=== PATIENT | male | born 1960 | race Caucasian/White ===

== ENCOUNTER → 2016-05-31 | Outpatient (CLI) | payer BC ==
[2016-05-31 08:19] LABS: ALT 26 U/L (21-72); AST 21 U/L (17-59); Cholesterol 175 mg/dL (<200); HDL Cholesterol 52 mg/dL (40-60); Triglycerides 79 mg/dL (<150)
== END | disposition home or self-care (01) ==
LOC: LABWHC1 07:34
PROVIDERS: ATTEND Nurse Practitioner Adult Health
DX: E78.2 Mixed hyperlipidemia (principal)
CPT/HCPCS: 36415; 80061; 84450; 84460

== ENCOUNTER → 2016-12-01 | Outpatient (CLI) | payer BC ==
[2016-12-01 17:13] LABS: Clam IgE <0.10 kU/L; Egg White IgE 0.45 kU/L; Peanut IgE <0.10 kU/L; Scallop IgE <0.10 kU/L; Soybean IgE <0.10 kU/L
[2016-12-01 17:19] LABS: Alternaria alternata IgE 0.29 kU/L; Aspergillus fumagatus IgE 0.51 kU/L; Cat Epith & Dander IgE <0.10 kU/L; Cladosporian herbarum IgE <0.10 kU/L; Dermato. farinae IgE 0.28 kU/L; Maple (Box Elder) IgE 0.16 kU/L; Orchard Grs(Cocksfoot) IgE <0.10 kU/L; Ragweed,Common IgE <0.10 kU/L
== END | disposition home or self-care (01) ==
LOC: LABWHC1 09:45
PROVIDERS: ATTEND Internal Medicine Critical Care Medicine
DX: J45.909 Unspecified asthma, uncomplicated (principal)
CPT/HCPCS: 36415; 82785; 86003

== ENCOUNTER 2017-10-01 11:53 | Emergency (ER) | payer BC ==
[2017-10-01 12:10] VITALS: BP 109/67; PULSE 72; RESP 18; TEMP 98.9
--- NOTE | 2017-10-01 12:23 | ED ---
Upper Extremity HPI - General Chief Complaint: Extremity Injury, Upper Stated Complaint: rt shoulder injury from fall Time Seen by Provider: 10/01/17 12:12 Source: patient Mode of arrival: ambulatory Limitations: no limitations - History of Present Illness Initial Comments: 56-year-old male presents with right shoulder pain that occurred last night. Patient states he was walking and tripped and fell and landed directly on his right shoulder. Patient states he is in a lot of pain. Patient doesn't remember any stenting popping or cracking sensation. No previous injury to this shoulder. Patient is right-hand dominant. Known sick tingling the patient is very limited range of motion with the right shoulder. No head or neck injury no loss of consciousness. Patient did not take any over-the- counter Motrin or Tylenol. No chest pain or rib discomfort. MD Complaint: Injury to:: right, shoulder Handedness: right Place: outdoors Improves With: none Worsens With: movement of extremity - Related Data Home Medications Medication Instructions Recorded Confirmed No Known Home Medications 10/01/17 10/01/17 Allergies Allergy/AdvReac Type Severity Reaction Status Date / Time No Known Allergies Allergy Verified 10/01/17 12:07 Review of Systems ROS Statement: Those systems with pertinent positive or pertinent negative responses have been documented in the HPI. ROS Other: All systems not noted in ROS Statement are negative. Musculoskeletal: Reports: other (right shoulder) Neurological: Denies: numbness, paresthesias Past Medical History Past Medical History: Asthma History of Any Multi-Drug Resistant Organisms: None Reported Past Surgical History: Orthopedic Surgery Additional Past Surgical History / Comment(s): hip replacement x 2 Past Psychological History: No Psychological Hx Reported Smoking Status: Never smoker Past Alcohol Use History: Occasional Past Drug Use History: None Reported General Exam Limitations: no limitations General appearance: alert, in no apparent distress Eye exam: Present: normal appearance, PERRL, EOMI. Absent: scleral icterus, conjunctival injection, periorbital swelling ENT exam: Present: normal exam, mucous membranes moist Neck exam: Present: normal inspection. Absent: tenderness, meningismus, lymphadenopathy Respiratory exam: Present: normal lung sounds bilaterally. Absent: respiratory distress, wheezes, rales, rhonchi, stridor Cardiovascular Exam: Present: regular rate, normal rhythm, normal heart sounds. Absent: systolic murmur, diastolic murmur, rubs, gallop, clicks Right Shoulder Exam: Present: normal inspection, tenderness (right ant), tenderness over AC joint (right). Absent: full ROM, swelling, ecchymosis, deformity Upper Arm exam: Present: normal inspection, full ROM. Absent: tenderness, swelling Elbow exam: Present: normal inspection, full ROM. Absent: tenderness, swelling Forearm Wrist exam: Present: normal inspection, full ROM. Absent: tenderness, swelling, abrasion Hand Wrist exam: Present: normal inspection, full ROM. Absent: tenderness, swelling Neuro motor exam: Present: wrist extension intact Neurosensory exam: Present: 2-point discrimination Vascular: Present: normal capillary refill. Absent: vascular compromise Neurological exam: Present: alert, oriented X3, CN II-XII intact Psychiatric exam: Present: normal affect, normal mood Skin exam: Present: warm, dry, intact, normal color. Absent: rash Course Vital Signs 10/01/17 12:07 Temperature 98.9 F Pulse Rate 72 Respiratory 18 Rate Blood Pressure 109/67 O2 Sat by Pulse 98 Oximetry Medical Decision Making - Medical Decision Making Patient tender to palpation on exam very limited range of motion at upon physical exam. Reviewed x-rays along with radiology results all negative for any acute changes. Only slight degenerative changes noted on the right shoulder x-ray. Patient aware given a sling applied by me. Patient have close follow-up with [facility] specialist may need MRI to rule out rotator cuff injury in the near future. Patient referred to [facility] specialist given xray copies. good lateral sensation upon exam Disposition Clinical Impression: Shoulder pain, acute, Contusion Disposition: HOME SELF-CARE Condition: Good Instructions: Shoulder Pain (ED) Is patient prescribed a controlled substance at d/c from ED?: No Referrals: [facility] [Primary Care Provider] - 1-2 days Lopez Lei MD [Medical Doctor] - 1-2 days Time of Disposition: 12:52
--- NOTE | 2017-10-01 12:41 | XR ---
EXAMINATION TYPE: XR AC joint BILAT , 2 VIEWS DATE OF EXAM ORDERED: 10/01/2017 HISTORY: Pain. COMPARISON: Right shoulder x-ray from earlier today. FINDINGS: The AC joints are normal. There is a normal coracoclavicular distance bilaterally. There i s no subluxation with weights. IMPRESSION: NORMAL AC JOINTS.
--- NOTE | 2017-10-01 12:41 | XR ---
EXAMINATION TYPE: XR shoulder complete RT , 3 VIEWS DATE OF EXAM ORDERED: 10/01/2017 HISTORY: Pain. COMPARISON: None. FINDINGS: No fracture, dislocation or other acute osseous lesion is seen. There are very mild degene rative changes in the right AC joint. IMPRESSION: 1. NO ACUTE OSSEOUS LESION. 2. MINIMAL DEGENERATIVE CHANGE.
== END 2017-10-01 13:03 | disposition home or self-care (01) ==
LOC: EC 11:53 → MERGE 11:53 → EC 13:03
DX: S40.011A Contusion of right shoulder, initial encounter (principal); Z96.649 Presence of unspecified artificial hip joint; Z98.890 Other specified postprocedural states; W01.198A Fall on same level from slipping, tripping and stumbling with subsequent striking against other object, initial encounter; Y92.89 Other specified places as the place of occurrence of the external cause; Y93.01 Activity, walking, marching and hiking
CPT/HCPCS: 73050; 99283

== ENCOUNTER → 2018-03-15 | Outpatient (CLI) | payer BC ==
--- NOTE | 2018-03-15 11:20 | BD ---
EXAMINATION TYPE: Axial Bone Density DATE OF EXAM: 03/15/2018 COMPARISON: NONE CLINICAL HISTORY: 57 YR OLD MALE.....ICD10 CODE: M89.9 DISORDER OF BONE Height: 63.3 Weight: 180 FRAX RISK QUESTIONS: Glucocorticoids (More than 3mos): YES (Ex: prednisone, prednisolone, methylprednisolone, dexamethasone, and hydrocortisone). RISK FACTORS HISTORY OF: HX OF SHOULDER FRACTURE YOUNG MAN Surgery to BOTH HIPS, THR's BILATERALLY Family History of Osteoporosis: YES HIS MOTHER Active: YES Lost more than 2 inches in height since high school: YES MEDICATIONS: Prednisone or other steroids: ASTHMA, ADVIAR, PREDNISONE ON AND OFF Additional Medications: VIT D AND MULTIVITAMIN, REFLUX MEDS, Additional History: BILAT HIP REPLACEMENTS, RT SHOULDER REPLACEMENT, LT ANKLE REPAIR, EXAM MEASUREMENTS: Bone mineral densitometry was performed using the [employer]. Bone mineral density as measured about the Lumbar spine is: ----- L1-L4(G/cm2): 1.184 T Score Values are as follows: ----- L1: -0.9 ----- L2: -0.6 ----- L3: -0.8 ----- L4: 2.2 ----- L1-L4: 0.0 Bone mineral density FIRST BONE DENSITY TEST.....BASELINE STUDY BILAT THR's Bone mineral density about the L Wrist (g/cm2): 0.754 T Score values are as follows: -----Dist. R+U: 1.4 -----Prox. R+U: -0.6 -----Radius total: 0.4 Bone mineral density BASELINE STUDY NO FRAX....NO HIP SCANS NOTE: T-SCORE=SD OF THE YOUNG ADULT MEAN. Impression: Bone density is in the overall normal range.
== END ==
LOC: RADBDWWP 07:01
PROVIDERS: ATTEND Family Medicine
DX: M89.9 Disorder of bone, unspecified (principal)
CPT/HCPCS: 77080

== ENCOUNTER → 2018-09-04 | Outpatient (CLI) | payer BC ==
--- NOTE | 2018-09-04 12:30 | XR ---
EXAMINATION TYPE: XR chest 2V DATE OF EXAM: 09/04/2018 COMPARISON: Prior chest x-ray 06/18/2013 HISTORY: Cough TECHNIQUE: Frontal and lateral views of the chest are obtained. FINDINGS: There is no focal air space opacity, pleural effusion, or pneumothorax seen. The cardiac silhouette size is within normal limits. There is eventration of the right hemidiaphragm. The osseou s structures are intact. IMPRESSION: No acute cardiopulmonary process.
--- NOTE | 2018-09-04 13:12 | XR ---
Right hand HISTORY: Pain 3 views of the right hand Bone mineralization and alignment are maintained. No fracture or dislocation. Mild spurring present a t the third metacarpophalangeal joint. There is some mild associated loss of joint space. Some hypert rophic change also noted at the distal interphalangeal joint, third distal interphalangeal joint. IMPRESSION: Osteoarthritis.
== END | disposition home or self-care (01) ==
LOC: RADXRYALE 10:40
PROVIDERS: ATTEND Physician Assistant Medical
DX: M19.041 Primary osteoarthritis, right hand (principal)
CPT/HCPCS: 71046

== ENCOUNTER → 2018-12-11 | Outpatient (CLI) | payer BC ==
--- NOTE | 2018-12-11 16:03 | XR ---
Right hip HISTORY: Right hip pain 2 views of the right hip Patient is status post right hip arthroplasty. There is anatomic alignment. Bone mineralization may b e slightly reduced. Degenerative disc changes noted at the lumbosacral junction. Heterotopic new bone formation present about the joint. IMPRESSION: No fracture or dislocation. Postop changes.
== END | disposition home or self-care (01) ==
LOC: RADXRYALE 15:17
PROVIDERS: ATTEND Family Medicine
DX: M25.551 Pain in right hip (principal); Z96.641 Presence of right artificial hip joint
CPT/HCPCS: 73502

== ENCOUNTER → 2019-02-13 | Outpatient (CLI) | payer BC ==
--- NOTE | 2019-02-14 07:51 | XR ---
Lumbosacral spine HISTORY: Back pain 5 views of lumbosacral spine There is mild anterolisthesis grade 1 L4-5. Loss of disc height present L4-5 and L5-S1. Lumbar verteb ral bodies show preserved height. Bone mineralization is mildly reduced. Sclerosis present in the pos terior elements of the lower lumbar spine consistent with facet arthropathy. Postop change noted to b e hip. No evident spondylolysis. IMPRESSION: Degenerative disc disease, facet arthropathy, spinal listhesis. Osteopenia. Postop change s.
== END | disposition home or self-care (01) ==
LOC: RADXRYALE 08:48
PROVIDERS: ATTEND Physician Assistant Medical
DX: M51.37 Other intervertebral disc degeneration, lumbosacral region (principal); M43.17 Spondylolisthesis, lumbosacral region; M46.97 Unspecified inflammatory spondylopathy, lumbosacral region; M85.80 Other specified disorders of bone density and structure, unspecified site; Z98.890 Other specified postprocedural states
CPT/HCPCS: 72110

== ENCOUNTER → 2019-09-11 | Outpatient (CLI) | payer BC ==
--- NOTE | 2019-09-11 13:25 | XR ---
EXAMINATION TYPE: XR shoulder complete LT DATE OF EXAM: 09/11/2019 COMPARISON: NONE HISTORY: Pain TECHNIQUE: Three views are submitted. FINDINGS: The osseous structures are intact. There is no acute fracture or dislocation. No acute fracture or d islocation. There is a calcification left lung likely relate to granuloma.. Arthropathy of the AC karolina int. IMPRESSION: 1. AC joint arthropathy correlate for chronic rotator cuff disease.
== END | disposition home or self-care (01) ==
LOC: RADXRMAIN 12:27
PROVIDERS: ATTEND Internal Medicine
DX: M12.812 Other specific arthropathies, not elsewhere classified, left shoulder (principal)

== ENCOUNTER → 2019-12-23 | Outpatient (CLI) | payer BC ==
--- NOTE | 2019-12-23 14:40 | FL ---
EXAMINATION TYPE: FL arthrogram shoulder LT fluoroscopic-guided arthrogram injection. DATE OF EXAM: 12/23/2019 HISTORY: Left shoulder pain PROCEDURES: 1. Left shoulder fluoroscopy. 2. Left shoulder arthrogram. TECHNIQUE: The procedure, risks, and alternatives, were discussed with the patient. Informed consent was obtaine d. The site/side of the procedure was marked. The accompanying paperwork was verified for consistency. A critical pause was performed with assisting personnel just prior to the procedure, and the patient' s identity was confirmed using 2 identifiers. The left shoulder was prepped and draped in the usual sterile fashion. Imaging guidance was utilized to select the precise skin entry point. Local 1% lidocaine anesthesia was instilled. Under fluoroscop ic guidance, a 21 gauge spinal needle was introduced into the left glenohumeral joint. Appropriate ne edle tip position was confirmed after a small amount of contrast injection. Approximately 9 ml of a mixture of Isovue 200 iodinated contrast and Gadavist gadolinium was injected into the glenohumeral joint. The needle was then removed. The patient tolerated the procedure well. There was no immediate complication. After the procedure, the patient's condition was unchanged. No estimated blood loss. Total fluoroscopy time: 30 seconds Total images obtained: 8 IMPRESSION: Technically successful left shoulder arthrogram injection for MRI. No immediate complication.
--- NOTE | 2019-12-23 22:23 | MR ---
EXAMINATION TYPE: MR shoulder arthrogrm LT w co DATE OF EXAM: 12/23/2019 COMPARISON: Radiographs 09/11/2019. HISTORY: Left shoulder pain, chronic. TECHNIQUE: Multiplanar, multisequence images of the left shoulder is performed with followed .07 mL i ntra-articular Gadavist gadolinium contrast. Fluoroscopic study is dictated on a separate report. Th ere is adequate distention of the left glenohumeral joint. FINDINGS: Rotator Cuff: Full-thickness tear of the subscapularis tendon cranial fibers extending to the suprasp inatus tendon anterior fibers as evidenced by intra-articular contrast communicating with the subacro mial-subdeltoid bursa. The tear measures approximately 1 cm AP and difficult to measure on the serrano l sequence. There is background of moderate tendinosis of the supraspinatus tendon and subscapularis tendons. The infraspinatus and teres minor tendons are grossly intact. Acromioclavicular Joint: Moderate osteoarthritis. Glenohumeral Joint: Moderate osteoarthritis with overlying moderate sized partial thickness chondral defect. Labrum: Heterogeneous appearance with blunting anterior of the superior labrum extending anterior to posterior. Biceps Tendon: Diminutive size and incomplete visualization of the long head biceps tendon, in keepin g with chronic injury. Bone marrow signal: No focal abnormal marrow signal is appreciated. Other: No additional significant abnormality is appreciated. IMPRESSION: Small to moderate-sized full-thickness tear of the subscapularis tendon cranial fibers extending to t he supraspinatus tendon anterior fibers. No significant tendon retraction. Associated moderate atroph y of the subscapularis muscle. Chronic injury of the long head biceps tendon with diminutive size. SLAP type labral tear. Moderate osteoarthritis.
== END | disposition home or self-care (01) ==
LOC: RADFLMAIN 12:51
PROVIDERS: ATTEND Nurse Practitioner Adult Health
DX: M75.122 Complete rotator cuff tear or rupture of left shoulder, not specified as traumatic (principal); S09.90XA Unspecified injury of head, initial encounter; M19.012 Primary osteoarthritis, left shoulder; M25.512 Pain in left shoulder
CPT/HCPCS: 23350; 73040; 73222; A9585; Q9966

== ENCOUNTER 2020-12-07 14:55 | Emergency (ER) | payer BC ==
[2020-12-07 15:04] VITALS: RESP 18; TEMP 98.2
[2020-12-07 15:41] LABS: Basophils # (A) 0.1 k/uL (0-0.2); Basophils % (A) 1 %; Eosinophils # (A) 0.7 k/uL (0-0.7); Eosinophils % (A) 7 %; HCT 47.9 % (39.0-53.0); HGB 15.9 gm/dL (13.0-17.5); Lymphocytes # (A) 1.5 k/uL (1.0-4.8); Lymphocytes % (A) 16 %; MCHC 33.1 g/dL (31.0-37.0); Mean Platelet Volume 6.3; Monocytes # (A) 0.4 k/uL (0-1.0); Monocytes % (A) 4 %; Neutrophils # (A) 6.5 k/uL (1.3-7.7); Neutrophils % (A) 70 %; Platelet Count 381 k/uL (150-450); RBC 5.12 m/uL (4.30-5.90); RDW 12.8 % (11.5-15.5); WBC 9.3 k/uL (3.8-10.6)
[2020-12-07 15:49] LABS: ALT 24 U/L (4-49); AST 27 U/L (17-59); African American GFR (CKD) >90 (>60 ml/min/1.73 sqM); Albumin 3.6 g/dL (3.5-5.0); Alkaline Phosphatase 53 U/L (38-126); Anion Gap 8 mmol/L; Blood Urea Nitrogen 11 mg/dL (9-20); Carbon Dioxide 23 mmol/L (22-30); Chloride 107 mmol/L (98-107); Glucose 131 mg/dL (74-99); MCV 93.5 fL (80.0-100.0); Non-African American GFR(CKD) >90 (>60 ml/min/1.73 sqM); Sodium 138 mmol/L (137-145); Total Bilirubin 0.5 mg/dL (0.2-1.3); Total Protein 6.5 g/dL (6.3-8.2)
[2020-12-07 15:55] LABS: Prothrombin Time 10.3 sec (9.0-12.0)
[2020-12-07 15:56] LABS: Partial Thromboplastin Time 23.5 sec (22.0-30.0)
--- NOTE | 2020-12-07 17:08 | XR ---
EXAMINATION TYPE: XR chest 2V DATE OF EXAM: 12/07/2020 COMPARISON: Chest radiograph 09/04/2018 HISTORY: Chest pain TECHNIQUE: Frontal and lateral views of the chest are obtained. FINDINGS: There is no focal air space opacity, pleural effusion, or pneumothorax seen. The cardiac silhouette size is within normal limits. Prominence of the central pulmonary vasculature similar to p rior. The osseous structures are intact. IMPRESSION: No acute cardiopulmonary process.
[2020-12-07 17:56] VITALS: BP 136/99; PULSE 68
[2020-12-07] MEDS ORDERED: ALBUTEROL HFA INHALER INHALATION STA (18:39)
[2020-12-07] MEDS ORDERED: predniSONE 50 MG TAB PO STA (18:39)
[2020-12-07] MEDS ORDERED: DOXYCYCLINE 100 MG CAP PO STA (18:40)
--- NOTE | 2020-12-07 19:23 | CT ---
EXAMINATION TYPE: CT chest angio for PE DATE OF EXAM: 12/07/2020 COMPARISON: None HISTORY: elevated d-dimer, chest pain CT DLP: 444.3 mGycm Automated exposure control for dose reduction was used. CONTRAST: CT Chest for pulmonary embolism performed with with IV Contrast, patient injected with 100 mL of Isov ue 370. FINDINGS: LUNGS: The lungs are grossly clear, there is no concerning parenchymal mass or nodule identified. T here is no pleural effusion or pneumothorax seen. The tracheobronchial tree is patent. Calcified gra nuloma left lower lobe. MEDIASTINUM: There is satisfactory enhancement of the pulmonary artery and its branches, there is no CT evidence for pulmonary embolism. There are no greater than 1 cm hilar or mediastinal lymph nodes. No pericardial effusion is seen. Tiny hiatal hernia. OTHER: No additional significant abnormality is seen. IMPRESSION: 1. No pulmonary embolus. 2. No acute process in the chest. 3. Tiny hiatal hernia.
--- NOTE | 2020-12-07 19:38 | ED ---
General Adult HPI - General Chief complaint: Shortness of Breath Stated complaint: chest pain, SOB Time Seen by Provider: 12/07/20 17:36 Source: patient, RN notes reviewed, old records reviewed Mode of arrival: ambulatory Limitations: no limitations - History of Present Illness Initial comments: Patient is a 59-year-old male with past medical history of recently diagnosed asthma within the last 10 years, sleep apnea who presents emergency Department c omplaining of continued shortness of breath and chest tightness since receiving the Covid 19 vaccination approximately 1 month ago. I evaluated the patient when he was placed in a room. He states he is having continued shortness of breath and asthma-like symptoms since experiencing the Covid 19 vaccination. He also has noticed that he is having worsening productive cough of a yellowish sputum over the last week or so. He is attempted to use his inhalers at home with minimal improvement. Patient was initially evaluated in triage and basic laboratory studies and chest x-ray were obtained as well is a cardiac workup. He denies any wayne chest pain, abdominal pain, nausea, vomiting. Denies any weakness, chills. Denies any fevers, sick contacts. He was vaccinated for COVID-19. His no other acute complaints at this time. Denies any history of blood clots. - Related Data Home Medications Medication Instructions Recorded Confirmed Albuterol Sulfate [Proair Hfa] 2 puff INHALATION RT-Q4H PRN 12/07/20 12/07/20 Montelukast Sodium [Singulair] 10 mg PO HS 12/07/20 12/07/20 guaiFENesin [Mucinex] 600 mg PO Q12H PRN 12/07/20 12/07/20 Previous Rx's Medication Instructions Recorded Albuterol Inhaler [Ventolin Hfa 1 puff INHALATION RT-TID #8 gm 12/07/20 Inhaler] Doxycycline Hyclate 100 mg PO BID 7 Days #14 tab 12/07/20 predniSONE [Deltasone] 40 mg PO DAILY 5 Days #10 tab 12/07/20 Allergies Allergy/AdvReac Type Severity Reaction Status Date / Time No Known Allergies Allergy Verified 12/07/20 18:25 Review of Systems ROS Statement: Those systems with pertinent positive or pertinent negative responses have been documented in the HPI. Review of Systems: CONST: Denies fever EYES: Denies blurry vision ENT: Denies nasal congestion C/V: Denies Chest pain RESP: Endorses shortness of breath GI: Denies abdominal pain : Denies dysuria SKIN: Denies rash. MSK: Denies joint pain. NEURO: Denies headache ROS Other: All systems not noted in ROS Statement are negative. Past Medical History Past Medical History: Asthma, Sleep Apnea/CPAP/BIPAP Additional Past Medical History / Comment(s): Boderline Asthma History of Any Multi-Drug Resistant Organisms: None Reported Past Surgical History: Joint Replacement, Orthopedic Surgery Additional Past Surgical History / Comment(s): hip replacement x 2 Past Anesthesia/Blood Transfusion Reactions: No Reported Reaction Past Psychological History: No Psychological Hx Reported Past Alcohol Use History: Occasional Past Drug Use History: None Reported - Past Family History Mother Family Medical History: No Reported History General Exam - General Exam Comments Initial Comments: General: Appears in no acute distress. HEAD: Normal with no signs of head trauma. EYES: PERRLA, EOMI, conjunctiva normal, no discharge. ENT: Hearing grossly intact, normal oropharynx. RESPIRATORY: Bilateral end expiratory wheezing without any obvious rhonchi. No increased work of breathing. C/V: Regular rate and rhythm. S1 and S2 auscultated, no edema, peripheral pulses 2+ and intact throughout ABD: Abd is soft, nontender, nondistended EXT: Normal range of motion, no obvious deformity SKIN: No rashes or lesions observed on exposed skin. NEURO: Alert and oriented 4. Limitations: no limitations Course Vital Signs 12/07/20 12/07/20 15:00 17:54 Temperature 98.2 F Pulse Rate 80 68 Respiratory 18 18 Rate Blood Pressure 124/84 136/99 O2 Sat by Pulse 98 94 L Oximetry Medical Decision Making - Medical Decision Making Based on the patient's presentation and physical exam, I'm concerned for possible cardiac etiologies, picked securely with his age for his current symptoms. This appears to be having an acute bronchitis as he has wheezy bilaterally with a cough productive of yellow mucus. I discussed this with him and would like to treat it. In addition to the workup obtained by triage, d- dimer will also be added as he is having this persistent shortness of breath and his family as well as the patient are concerned for possible blood clot. I believe this is reasonable. Patient will be given 50 mg of by mouth prednisone, albuterol breathing treatment, as well as 20 mg of doxycycline for symptomatic treatment here in the department. Patient's EKG showed no signs of acute ischemia. Chest x-ray revealed no acute cardiopulmonary process. Laboratory studies were remarkable for a negative Covid swab. Patient's d-dimer was elevated to 0.91. I discussed this with the patient we will obtain a CT angiogram to rule out the possibility of PE and he was in agreement. CT angiogram revealed no signs of pulmonary embolism. There was a tiny hiatal hernia present. I discussed the results with the patient. I believe it is safe for him to be discharged home with antibiotics and steroids. He was in agreement with this plan. I will provide the patient with a prescription for doxycycline 100 mg twice a day for 7 days, prednisone 40 mg daily for 5 days, albuterol inhaler. I instructed the patient to follow up with their PCP in the next 3 days. I explained that the patient should return to the emergency department if they experience any worsening symptoms. Strict return precautions were discussed with the patient. The patient expressed understanding of these instructions. I answered all questions that the patient had. The patient was discharged home in fair condition with their prescriptions and follow up information. - Lab Data Result diagrams: 12/07/20 15:31 12/07/20 15:31 Lab Results 12/07/20 12/07/20 12/07/20 Range/Units 15:31 15:31 15:31 WBC 9.3 (3.8-10.6) k/uL RBC 5.12 (4.30-5.90) m/uL Hgb 15.9 (13.0-17.5) gm/dL Hct 47.9 (39.0-53.0) % MCV 93.5 D (80.0-100.0) fL MCH 31.0 (25.0-35.0) pg MCHC 33.1 (31.0-37.0) g/dL RDW 12.8 (11.5-15.5) % Plt Count 381 (150-450) k/uL MPV 6.3 Neutrophils % 70 % Lymphocytes % 16 % Monocytes % 4 % Eosinophils % 7 % Basophils % 1 % Neutrophils # 6.5 (1.3-7.7) k/uL Lymphocytes # 1.5 (1.0-4.8) k/uL Monocytes # 0.4 (0-1.0) k/uL Eosinophils # 0.7 (0-0.7) k/uL Basophils # 0.1 (0-0.2) k/uL PT 10.3 (9.0-12.0) sec INR 1.0 (<1.2) APTT 23.5 (22.0-30.0) sec D-Dimer (<0.60) mg/L FEU Sodium 138 (137-145) mmol/L Potassium 4.0 (3.5-5.1) mmol/L Chloride 107 (98-107) mmol/L Carbon Dioxide 23 (22-30) mmol/L Anion Gap 8 mmol/L BUN 11 (9-20) mg/dL Creatinine 0.61 L (0.66-1.25) mg/dL Est GFR (CKD-EPI)AfAm >90 (>60 ml/min/1.73 sqM) Est GFR (CKD-EPI)NonAf >90 (>60 ml/min/1.73 sqM) Glucose 131 H (74-99) mg/dL Calcium 9.0 (8.4-10.2) mg/dL Total Bilirubin 0.5 (0.2-1.3) mg/dL AST 27 (17-59) U/L ALT 24 (4-49) U/L Alkaline Phosphatase 53 (38-126) U/L Troponin I (0.000-0.034) ng/mL Total Protein 6.5 (6.3-8.2) g/dL Albumin 3.6 (3.5-5.0) g/dL Coronavirus (PCR) (Not Detectd) 12/07/20 12/07/20 12/07/20 Range/Units 15:31 15:31 Unknown WBC (3.8-10.6) k/uL RBC (4.30-5.90) m/uL Hgb (13.0-17.5) gm/dL Hct (39.0-53.0) % MCV (80.0-100.0) fL MCH (25.0-35.0) pg MCHC (31.0-37.0) g/dL RDW (11.5-15.5) % Plt Count (150-450) k/uL MPV Neutrophils % % Lymphocytes % % Monocytes % % Eosinophils % % Basophils % % Neutrophils # (1.3-7.7) k/uL Lymphocytes # (1.0-4.8) k/uL Monocytes # (0-1.0) k/uL Eosinophils # (0-0.7) k/uL Basophils # (0-0.2) k/uL PT (9.0-12.0) sec INR (<1.2) APTT (22.0-30.0) sec D-Dimer 0.91 H (<0.60) mg/L FEU Sodium (137-145) mmol/L Potassium (3.5-5.1) mmol/L Chloride (98-107) mmol/L Carbon Dioxide (22-30) mmol/L Anion Gap mmol/L BUN (9-20) mg/dL Creatinine (0.66-1.25) mg/dL Est GFR (CKD-EPI)AfAm (>60 ml/min/1.73 sqM) Est GFR (CKD-EPI)NonAf (>60 ml/min/1.73 sqM) Glucose (74-99) mg/dL Calcium (8.4-10.2) mg/dL Total Bilirubin (0.2-1.3) mg/dL AST (17-59) U/L ALT (4-49) U/L Alkaline Phosphatase (38-126) U/L Troponin I <0.012 (0.000-0.034) ng/mL Total Protein (6.3-8.2) g/dL Albumin (3.5-5.0) g/dL Coronavirus (PCR) Not Detected (Not Detectd) - EKG Data -: EKG Interpreted by Me EKG Comments: 12-lead Electrocardiogram Interpretation Note EKG was reviewed and interpreted by myself. 12-lead ECG performed at 1524 is interpreted by me as revealing normal sinus rhythm at a rate of 67 beats per minute. Graham is normal. ND interval is 154 ms, QRS duration is 132 ms, QTc is 462 ms.. There were no ST or T wave abnormalities to suggest myocardial ischemia or injury. R wave progression across the precordium was satisfactory. By my interpretation this EKG is non-diagnostic for acute ischemia. EKG was read as possible WPW, however I do not appreciate delta waves to suggest this. ND interval is within normal limits. Disposition Clinical Impression: Bronchitis, COPD exacerbation Disposition: HOME SELF-CARE Condition: Fair Instructions (If sedation given, give patient instructions): Acute Bronchitis (ED) Prescriptions: predniSONE [Deltasone] 40 mg PO DAILY 5 Days #10 tab Doxycycline Hyclate 100 mg PO BID 7 Days #14 tab Albuterol Inhaler [Ventolin Hfa Inhaler] 1 puff INHALATION RT-TID #8 gm Is patient prescribed a controlled substance at d/c from ED?: No Referrals: Jay Tamez MD [Primary Care Provider] - 1-2 days
== END 2020-12-07 20:37 | disposition home or self-care (01) ==
LOC: EC 14:55
DX: J44.1 Chronic obstructive pulmonary disease with (acute) exacerbation (principal); Z79.51 Long term (current) use of inhaled steroids; Z23 Encounter for immunization; Z20.822 Contact with and (suspected) exposure to COVID-19
CPT/HCPCS: 99285; 36415; 94640; 93005; 85379; 80053; 84484; 85025; 85610; 85730; 87635; 71046; 71275; J7512; Q9967

== ENCOUNTER → 2021-09-15 | Outpatient (CLI) | payer BC ==
[2021-09-16 13:06] LABS: Aspergillus fumagatus IgE 0.11 kU/L
== END | disposition home or self-care (01) ==
LOC: LABWHC1 15:45
PROVIDERS: ATTEND Internal Medicine Critical Care Medicine
DX: J45.50 Severe persistent asthma, uncomplicated (principal)
CPT/HCPCS: 36415; 82785; 85008; 86003

== ENCOUNTER → 2021-11-24 | Outpatient (CLI) | payer BC ==
[2021-11-24 14:41] LABS: Basophils # (A) 0.05 X 10*3/uL (0.00-0.10); Basophils % (A) 0.7 %; Eosinophils # (A) 0.67 X 10*3/uL (0.04-0.35); Eosinophils % (A) 9.7 %; HCT 47.7 % (39.6-50.0); HGB 15.8 g/dL (13.0-17.0); Immature Grans, Automated 0.1 %; Lymphocytes # (A) 1.64 X 10*3/uL (0.90-5.00); Lymphocytes % (A) 23.7 %; MCHC 33.1 g/dL (32.0-37.0); MCV 93.5 fL (80.0-97.0); Mean Platelet Volume 8.2 fL (9.5-12.2); Monocytes # (A) 0.51 X 10*3/uL (0.20-1.00); Monocytes % (A) 7.4 %; NRBC Per 100 WBC 0 /100 WBCS (0.0-0.0); Neutrophils # (A) 4.05 X 10*3/uL (1.80-7.70); Neutrophils % (A) 58.4 %; Platelet Count 371 X 10*3/uL (140-440); RDW 13.2 % (11.5-14.5); WBC 6.93 X 10*3/uL (4.50-10.00)
[2021-11-24 15:23] LABS: ALT 16 U/L (10-49); AST 18 U/L (14-35); African American GFR (CKD) 113.5 (60.0-200.0); Albumin 3.8 g/dL (3.8-4.9); Albumin/Globulin Ratio 1.39 (1.60-3.17); Alkaline Phosphatase 65 U/L (41-126); BUN/Creat Ratio 17.94 Ratio (12.00-20.00); Blood Urea Nitrogen 13.6 mg/dL (9.0-27.0); Calcium 8.6 mg/dL (8.7-10.3); Carbon Dioxide 24.4 mmol/L (20.0-27.5); Chloride 105 mmol/L (96-109); Chol/HDL Ratio 4.16 Ratio; Globulin 2.7 g/dL (1.6-3.3); Glucose 100 mg/dL (70-110); LDL Cholesterol,Calculated 120.7 mg/dL (0.0-131.0); Non-African American GFR(CKD) 97.9 (60.0-200.0); Potassium 4.2 mmol/L (3.5-5.5); Sodium 139 mmol/L (135-145); Total Protein 6.5 g/dL (6.2-8.2)
== END | disposition home or self-care (01) ==
LOC: LABWHC1 08:00
PROVIDERS: ATTEND Internal Medicine
DX: Z12.5 Encounter for screening for malignant neoplasm of prostate (principal); J45.909 Unspecified asthma, uncomplicated
CPT/HCPCS: 80061; 80053; 84443; 85025; 36415; G0103

== ENCOUNTER → 2022-10-03 | Outpatient (CLI) | payer BC | END | disposition home or self-care (01) | LOC: LABWHC1 09:57 | PROVIDERS: ATTEND Family Medicine | DX: Z13.29 Encounter for screening for other suspected endocrine disorder (principal); R53.83 Other fatigue | CPT/HCPCS: 36415; 82040; 84270; 84403 ==

== ENCOUNTER → 2024-07-01 | Outpatient (CLI) | payer BC | END | disposition home or self-care (01) | LOC: LABWHC1 12:26 | PROVIDERS: ATTEND Internal Medicine Critical Care Medicine | DX: J45.50 Severe persistent asthma, uncomplicated (principal) | CPT/HCPCS: 36415; 85008 ==